=== PATIENT | female | born 1965 | race African-American/Black ===

== ENCOUNTER 2017-01-25 17:07 | Emergency (ER) | payer MEDICAID, OTHER ==
[~2017-01-25] VITALS: Ht 160 cm; Wt 79.0 kg
[~2017-01-25 17:07] MED LIST: ALBU17AE26; BUPR100T13; METF500T; RISP3
[2017-01-25 23:55] VITALS: BP 153/81
[2017-01-26] MEDS ORDERED: TETANUS, DIPHTHERIA, PERTUSSIS VAC/PF 0.5ML (>7YR OLD) IM ONE (01:00)
[2017-01-26] MEDS ORDERED: LIDOCAINE HCL 1% 20ML VIAL (Pyxis) INJ MC ONE (01:00)
[2017-01-26] MEDS ORDERED: BACITRACIN ZINC OINT UDPKT TOP ONE (01:00)
== END 2017-01-26 02:55 | disposition home or self-care (01) ==
LOC: ER 17:07
DX: L03.012 Cellulitis of left finger (principal); I10 Essential (primary) hypertension; J45.909 Unspecified asthma, uncomplicated; F17.210 Nicotine dependence, cigarettes, uncomplicated; Z88.0 Allergy status to penicillin
CPT/HCPCS: 10060; 90471; 90715; 99283; J3490; X7700; Z7610

== ENCOUNTER 2018-04-24 17:25 | Emergency (ER) | payer MEDICAID, OTHER ==
[~2018-04-24] VITALS: Ht 160 cm; Wt 75.0 kg
[2018-04-25 01:21] VITALS: BP 112/66
== END 2018-04-25 01:22 | disposition home or self-care (01) ==
LOC: ER 17:25
DX: J06.9 Acute upper respiratory infection, unspecified (principal); S80.11XA Contusion of right lower leg, initial encounter; W01.0XXA Fall on same level from slipping, tripping and stumbling without subsequent striking against object, initial encounter; Y93.89 Activity, other specified; Y92.89 Other specified places as the place of occurrence of the external cause
CPT/HCPCS: 99283

== ENCOUNTER 2018-07-28 19:33 | Emergency (ER) | payer MEDICAID ==
[~2018-07-28] VITALS: Ht 160 cm; Wt 77.0 kg
[2018-07-29 01:01] LABS: BASOPHILS % 0.1 % (0.0-2.0); EOSINOPHILS % 4.4 % (0.0-5.0); HEMATOCRIT. 38.3 % (36.0-48.0); HEMOGLOBIN. 12.7 g/dL (12.0-16.0); LYMPHOCYTES % 21.9 % (20.0-50.0); MEAN CORPUSCULAR HEMOGLOBIN 29.6 pg (28.0-32.0); MEAN CORPUSCULAR VOLUME 89.3 fL (81.0-99.0); MEAN PLATELET VOLUME 7.5 fl (7.4-10.4); MONOCYTES % 10.3 % (2.0-8.0); NEUTROPHILS % 63.3 % (40.0-76.0); PLATELET 790 x1000/uL (130-400); RED BLOOD CELL COUNT 4.29 mill/uL (4.2-5.4); RED CELL DISTRIBUTION WIDTH 16.3 % (11.6-14.6)
[2018-07-29 01:06] LABS: CHLORIDE 103 mEq/L (98-107)
[2018-07-29 01:08] LABS: PROTHROMBIN TIME 10.5 sec (9.6-11.0)
[2018-07-29 04:29] VITALS: BP 126/79
== END 2018-07-29 04:34 | disposition home or self-care (01) ==
LOC: ER 21:53
DX: S50.11XA Contusion of right forearm, initial encounter (principal); W01.0XXA Fall on same level from slipping, tripping and stumbling without subsequent striking against object, initial encounter; Y93.89 Activity, other specified; Y92.89 Other specified places as the place of occurrence of the external cause; I10 Essential (primary) hypertension; E11.9 Type 2 diabetes mellitus without complications; F17.210 Nicotine dependence, cigarettes, uncomplicated; Z71.6 Tobacco abuse counseling; Z88.0 Allergy status to penicillin
CPT/HCPCS: 36415; 73060; 73090; 80048; 99284; 99406

== ENCOUNTER 2019-05-26 17:29 | Emergency (ER) | payer MEDICAID ==
[~2019-05-26] VITALS: Ht 165.1 cm; Wt 76.0 kg
[2019-05-26] MEDS ORDERED: IBUPROFEN 600MG TABLET PO ONE (20:30)
[2019-05-26 21:44] VITALS: BP 120/81
[2019-05-27] MEDS ORDERED: FENTANYL CITRATE/PF 50MCG/ML 2ML VIAL ONE (07:19)
[2019-05-27] MEDS ORDERED: PROPOFOL 200MG/20ML VIAL IV ONE ×2 (07:20→08:09)
[2019-05-27] MEDS ORDERED: MIDAZOLAM HCL 2 MG/2 ML VIAL ONE (07:20)
[2019-05-27] MEDS ORDERED: EPHEDRINE SULFATE 50MG/ML VIAL ONE (07:29)
[2019-05-27] MEDS ORDERED: ROCURONIUM BROMIDE 10MG/ML VIAL 5ML IV ONE (07:29)
[2019-05-27] MEDS ORDERED: SUCCINYLCHOLINE CHLORIDE 200MG/10ML IV ONE (07:29)
[2019-05-27] MEDS ORDERED: ONDANSETRON HCL 4MG/2ML INJ ONE (08:03)
== END 2019-05-26 21:43 | disposition home or self-care (01) ==
LOC: ER 17:29
DX: S92.351A Displaced fracture of fifth metatarsal bone, right foot, initial encounter for closed fracture (principal); W22.8XXA Striking against or struck by other objects, initial encounter; Y93.89 Activity, other specified; Y92.018 Other place in single-family (private) house as the place of occurrence of the external cause
CPT/HCPCS: 73660; 99283; Z7610

== ENCOUNTER 2019-12-14 12:42 | Emergency (ER) | payer MEDICAID ==
[~2019-12-14] VITALS: Ht 160 cm; Wt 72.0 kg
[~2019-12-14 12:42] MED LIST changes: +INSU100I13 SQ; +INSU100I28 SQ
[2019-12-14 14:32] VITALS: BP 146/83
== END 2019-12-14 14:34 | disposition home or self-care (01) ==
LOC: ER 13:14
DX: S70.11XA Contusion of right thigh, initial encounter (principal); N60.01 Solitary cyst of right breast; J44.9 Chronic obstructive pulmonary disease, unspecified; E11.9 Type 2 diabetes mellitus without complications; I10 Essential (primary) hypertension; Z88.0 Allergy status to penicillin; Z79.4 Long term (current) use of insulin; Z79.899 Other long term (current) drug therapy; Z98.890 Other specified postprocedural states; X58.XXXA Exposure to other specified factors, initial encounter; Y93.89 Activity, other specified; Y92.89 Other specified places as the place of occurrence of the external cause; Y99.8 Other external cause status
CPT/HCPCS: 93005; 99283

== ENCOUNTER 2020-08-15 16:50 | Emergency (ER) | payer MEDICAID ==
[~2020-08-15] VITALS: Ht 167.6 cm; Wt 75.0 kg
[2020-08-15] MEDS ORDERED: LIDOCAINE HCL/EPINEPHRINE 1%-EPI 1:100,000 50 ML VIAL INFIL ONE (18:45)
[2020-08-15] MEDS ORDERED: TETANUS, DIPHTHERIA, PERTUSSIS VAC/PF 0.5ML (>7YR OLD) IM ONE (18:45)
[2020-08-15] MEDS ORDERED: LIDOCAINE HCL/EPINEPHRINE 1%-EPI 1:100,000 20 ML VIAL INFIL NR (19:24)
[2020-08-15] MEDS ORDERED: ACETAMINOPHEN 325MG TABLET PO ONE (22:30)
[2020-08-15 22:50] VITALS: BP 146/80
== END 2020-08-15 23:07 | disposition home or self-care (01) ==
LOC: ER 16:50
DX: R55 Syncope and collapse (principal); J45.909 Unspecified asthma, uncomplicated; E11.9 Type 2 diabetes mellitus without complications; Z98.890 Other specified postprocedural states; Z88.0 Allergy status to penicillin; Z79.899 Other long term (current) drug therapy
CPT/HCPCS: 12013; 99283; J3490

== ENCOUNTER 2020-08-21 19:28 | Emergency (ER) | payer MEDICAID ==
[~2020-08-21] VITALS: Ht 160 cm; Wt 64.0 kg
[2020-08-21 19:40] VITALS: BP 131/77
== END 2020-08-21 23:00 | disposition home or self-care (01) ==
LOC: ER 19:28
DX: S02.40CA Maxillary fracture, right side, initial encounter for closed fracture (principal); S00.03XA Contusion of scalp, initial encounter; Y08.89XA Assault by other specified means, initial encounter; Y93.89 Activity, other specified; Z71.89 Other specified counseling; Y92.89 Other specified places as the place of occurrence of the external cause; I10 Essential (primary) hypertension; E11.9 Type 2 diabetes mellitus without complications; J44.9 Chronic obstructive pulmonary disease, unspecified; Z79.899 Other long term (current) drug therapy
CPT/HCPCS: 99284

== ENCOUNTER 2020-12-07 16:22 | Emergency (ER) | payer OTHER, MEDICAID ==
[~2020-12-07] VITALS: Ht 160 cm; Wt 59.0 kg
[~2020-12-07 16:22] MED LIST changes: +IBUP-2029 MT
[2020-12-07] MEDS ORDERED: ASPIRIN 81MG TABLET PO ONE (17:30)
[2020-12-07] MEDS ORDERED: NITROGLYCERIN 0.4MG TABLET SL SL PRN (17:30)
[2020-12-07 17:36] LABS: BASOPHILS % 1.3 % (0.0-2.0); CHLORIDE 97 mEq/L (98-107); EOSINOPHILS % 5.3 % (0.0-5.0); HEMATOCRIT. 49.7 % (36.0-48.0); HEMOGLOBIN. 16.6 g/dL (12.0-16.0); LYMPHOCYTES % 22.2 % (20.0-50.0); MEAN CORPUSCULAR HEMOGLOBIN 28.1 pg (28.0-32.0); MEAN CORPUSCULAR VOLUME 83.9 fL (81.0-99.0); MONOCYTES % 8.7 % (2.0-8.0); NEUTROPHILS % 62.5 % (40.0-76.0); PLATELET 770 x1000/uL (130-400); RED BLOOD CELL COUNT 5.92 mill/uL (4.2-5.4); RED CELL DISTRIBUTION WIDTH 16.7 % (11.6-14.6)
[2020-12-07 18:38] LABS: CHLORIDE 100 mEq/L (98-107)
[2020-12-07 18:45] LABS: D-DIMER 0.33 mg/L FEU (<0.50); PARTIAL THROMBOPLASTIN TIME 28.6 sec (23.4-31.0)
[2020-12-07 21:38] VITALS: BP 128/72
== END 2020-12-08 | disposition short-term general hospital (02) ==
LOC: ER 16:41
DX: R06.02 Shortness of breath (principal); I48.92 Unspecified atrial flutter; R00.2 Palpitations; E11.9 Type 2 diabetes mellitus without complications; I10 Essential (primary) hypertension; Z88.0 Allergy status to penicillin; Z79.4 Long term (current) use of insulin; Z79.899 Other long term (current) drug therapy
CPT/HCPCS: 36415; 71045; 80048; 80053; 83880; 84484; 85025; 85379; 85610; 85730; 93005; 99285; Z7610

== ENCOUNTER 2022-08-21 18:40 | Emergency (ER) | payer MEDICAID, OTHER ==
[~2022-08-21] VITALS: Ht 162.6 cm; Wt 50.6 kg
[2022-08-21 20:50] LABS: HEMATOCRIT. 52.7 % (36.0-48.0); HEMOGLOBIN. 17.1 g/dL (12.0-16.0); MEAN CORPUSCULAR HEMOGLOBIN 30.2 pg (28.0-32.0); MEAN CORPUSCULAR VOLUME 93.2 fL (81.0-99.0); MEAN PLATELET VOLUME 8.4 fl (7.4-10.4); PLATELET 909 x1000/uL (130-400); RED BLOOD CELL COUNT 5.65 mill/uL (4.2-5.4); RED CELL DISTRIBUTION WIDTH 16.4 % (11.6-14.6)
[2022-08-21 20:57] LABS: CHLORIDE 98 mEq/L (98-107)
[2022-08-21 21:17] LABS: PLATELET ESTIMATE MARKEDLY INCREASED
[2022-08-22 00:30] VITALS: BP 150/83
[2022-08-22] MEDS ORDERED: KETOROLAC 30MG/ML VIAL IM ONE (00:30)
[2022-08-22] MEDS ORDERED: IBUP-2028 MT (02:31)
[2022-08-22] MEDS ORDERED: KETOROLAC 30MG/ML VIAL IM NR (03:00)
== END 2022-08-22 02:52 | disposition home or self-care (01) ==
LOC: ER 18:40
DX: E11.65 Type 2 diabetes mellitus with hyperglycemia (principal); I10 Essential (primary) hypertension; F12.10 Cannabis abuse, uncomplicated; Z98.890 Other specified postprocedural states
CPT/HCPCS: 36415; 73100; 73502; 73551; 80053; 85025; 96372; 99284; J1885

== ENCOUNTER 2024-10-20 20:25 | Inpatient (IN) | payer MEDICAID, OTHER ==
[~2024-10-20] VITALS: Ht 160 cm; Wt 64.9 kg
[~2024-10-20 20:25] MED LIST changes: +FURO40TA5 PO; +HYDR500C23 PO; +IBUP-2028 MT; -IBUP-2029 MT; +INSLIS SUBCUT; +LANTUSUD SUBCUT; +METO-539 PO; +P20 PO; +RIVA20TA MT
[2024-10-20 20:27] VITALS: O2SAT 99
[2024-10-20] MEDS: SODIUM CHLORIDE 0.9% 1,000 ML IV ONE ×2 (20:45→23:39)
[2024-10-20 21:44] LABS: HEMATOCRIT. 52.3 % (36.0-48.0); HEMOGLOBIN. 16.9 g/dL (12.0-16.0); MEAN PLATELET VOLUME 8.1 fl (7.4-10.4); PLATELET 952 x1000/uL (130-400); RED BLOOD CELL COUNT 5.16 mill/uL (4.2-5.4); RED CELL DISTRIBUTION WIDTH 16.9 % (11.6-14.6)
[2024-10-20 22:12] LABS: CREATININE 1.5 mg/dL (0.6-1.0); TROPONIN I HIGH SENSITIVITY 20 ng/L (3.0-34); UREA NITROGEN BLOOD 38 mg/dL (9-23)
[2024-10-20 22:13] LABS: ETHANOL BLOOD < 10 mg/dL (<10)
[2024-10-20 22:14] LABS: ASPARTATE AMINOTRANSFERASE 39 IU/L (<34); BILIRUBIN DIRECT 0.3 mg/dL (<=3.0); BILIRUBIN TOTAL 0.7 mg/dL (0.1-1.0); PROTEIN TOTAL 7.3 g/dL (6.0-8.3)
[2024-10-20 22:31] LABS: INR 1.1; LYMPHOCYTES % MANUAL 7.0 % (20.0-60.0); MONOCYTES % MANUAL 11.0 % (2.0-8.0); NEUTROPHILS % MANUAL 82.0 % (45.0-75.0); PLATELET ESTIMATE MARKEDLY INCREASED
[2024-10-20] MEDS ORDERED: VANCOMYCIN 1G PREMIX 200 ML IV ONE (23:00)
[2024-10-20] MEDS ORDERED: CEFEPIME 2GM IN DEXT 5% 100ML IV ONE (23:00)
[2024-10-20] MEDS: CEFEPIME 2GM/100ML 100 ML IV NR (23:39)
[2024-10-21] MEDS ORDERED: LORAZEPAM 2MG/ML UD SYRINGE IV PRN
[2024-10-21] MEDS ORDERED: ONDANSETRON HCL 4MG/2ML INJ IV PRN
[2024-10-21] MEDS ORDERED: IPRATROPIUM/ALBUTEROL 0.5-3(2.5)MG/3ML NEB HHN PRN
[2024-10-21] MEDS ORDERED: ACETAMINOPHEN 325MG TABLET PO PRN ×2
[2024-10-21] MEDS ORDERED: CHLORDIAZEPOXIDE 25MG CAPSULE PO PRN
[2024-10-21] MEDS ORDERED: DEXTROSE 50% WATER 50ML SYRINGE IV PRN
[2024-10-21] MEDS ORDERED: METRONIDAZOLE 500 MG PREMIX 100 ML IV SCH (01:00)
[2024-10-21] MEDS: VANCOMYCIN 1.5GM/250ML 250 ML IV NR (01:21)
[2024-10-21] MEDS: FOLIC ACID 1 MG, THIAMINE HCL 100 MG, MVI, ADULT NO.1 10 ML in DEXTROSE 5% WATER 1,000 ML IV SCH (01:21)
[2024-10-21 03:53] VITALS: BP 133/81; PULSE 91; RESP 16; TEMP 36.2512
[2024-10-21] MEDS: SODIUM CHLORIDE 0.45% 1,000 ML IV SCH (04:56)
[2024-10-21] MEDS ORDERED: PIPERACILLIN/TAZO 3.375G/50ML 50 ML IV SCH (06:00)
[2024-10-21] MEDS: METRONIDAZOLE 500 MG PREMIX 100 ML IV SCH (06:28)
[2024-10-21] MEDS: BLOOD SUGAR DIAGNOSTIC STRIP TEST SCH (07:06)
[2024-10-21 07:25] LABS: TROPONIN I HIGH SENSITIVITY 18 ng/L (3.0-34)
[2024-10-21 07:28] LABS: T4 FREE 1.03 ng/dL (0.89-1.76)
[2024-10-21 07:46] LABS: CREATININE 1.2 mg/dL (0.6-1.0)
[2024-10-21 07:47] LABS: LDL CHOLESTEROL 88 mg/dL (5-100); TRIGLYCERIDE 159 mg/dL (0-150); UREA NITROGEN BLOOD 27 mg/dL (9-23)
[2024-10-21 07:48] LABS: ASPARTATE AMINOTRANSFERASE 32 IU/L (<34)
[2024-10-21 07:49] LABS: BILIRUBIN DIRECT 0.2 mg/dL (<=3.0); BILIRUBIN TOTAL 0.6 mg/dL (0.1-1.0); PROTEIN TOTAL 6.6 g/dL (6.0-8.3)
[2024-10-21 08:00] VITALS: BP 146/88; PULSE 83; RESP 17; TEMP 36; O2SAT 98
[2024-10-21 08:01] LABS: FOLIC ACID (FOLATE) SERUM 15.97 ng/mL (>5.38); VITAMIN B12 SERUM 1448 pg/mL (211-911)
[2024-10-21 08:09] LABS: BASOPHILS % 0.6 % (0.0-2.0); EOSINOPHILS % 3.6 % (0.0-5.0); HEMATOCRIT. 47.8 % (36.0-48.0); HEMOGLOBIN. 15.9 g/dL (12.0-16.0); LYMPHOCYTES % 8.1 % (20.0-50.0); MEAN PLATELET VOLUME 8.1 fl (7.4-10.4); MONOCYTES % 9.8 % (2.0-8.0); NEUTROPHILS % 77.9 % (40.0-76.0); PLATELET 838 x1000/uL (130-400); RED BLOOD CELL COUNT 4.79 mill/uL (4.2-5.4); RED CELL DISTRIBUTION WIDTH 16.2 % (11.6-14.6)
[2024-10-21] MEDS ORDERED: ENOXAPARIN 40MG/0.4ML SYR SUBCUT SCH (09:00)
[2024-10-21] MEDS: PANTOPRAZOLE SODIUM 40 MG/VIAL IV SCH (09:00)
[2024-10-21] MEDS: CEFEPIME 2GM/100ML 100 ML IV SCH ×2 (09:00→21:13)
[2024-10-21] MEDS: INSULIN LISPRO 100 UNITS/ML SUBCUT SCH (09:48)
[2024-10-21] MEDS: MULTIVITAMINS,THER W-MINERALS TABLET PO SCH (09:51)
[2024-10-21] MEDS: FOLIC ACID 1MG TABLET PO SCH (09:51)
[2024-10-21] MEDS: ENOXAPARIN 30MG/0.3ML SYR SUBCUT SCH (09:52)
[2024-10-21 11:55] LABS: HEPATITIS C AB NON REACTIVE (Neg) (Negative)
[2024-10-21 12:00] VITALS: BP 161/95; PULSE 79; RESP 19; TEMP 36.1; O2SAT 97
[2024-10-21 16:00] VITALS: BP 143/91; PULSE 17; RESP 17; TEMP 36; O2SAT 83
[2024-10-21] MEDS: CLONIDINE 0.1MG TABLET PO PRN (17:45)
[2024-10-22] VITALS: BP 121/86; PULSE 75; RESP 18; TEMP 36.5; O2SAT 100
[2024-10-22 04:00] VITALS: BP 142/90; PULSE 79; RESP 16; TEMP 36.6; O2SAT 91
[2024-10-22 06:58] LABS: BASOPHILS % 0.7 % (0.0-2.0); EOSINOPHILS % 4.1 % (0.0-5.0); HEMATOCRIT. 45.9 % (36.0-48.0); HEMOGLOBIN. 15.3 g/dL (12.0-16.0); LYMPHOCYTES % 11.7 % (20.0-50.0); MEAN PLATELET VOLUME 8.1 fl (7.4-10.4); MONOCYTES % 13.3 % (2.0-8.0); NEUTROPHILS % 70.2 % (40.0-76.0); PLATELET 796 x1000/uL (130-400); RED BLOOD CELL COUNT 4.65 mill/uL (4.2-5.4); RED CELL DISTRIBUTION WIDTH 16.1 % (11.6-14.6)
[2024-10-22 07:21] LABS: CREATININE 0.9 mg/dL (0.6-1.0)
[2024-10-22 07:22] LABS: UREA NITROGEN BLOOD 17 mg/dL (9-23)
[2024-10-22 08:00] VITALS: BP 135/95; PULSE 80; RESP 19; TEMP 36.2; O2SAT 97
[2024-10-22] MEDS: VANCOMYCIN 750MG PREMIX 150 ML IV SCH (10:31)
[2024-10-22 12:00] VITALS: BP 123/88; PULSE 76; RESP 19; TEMP 36.3; O2SAT 97
[2024-10-22 16:00] VITALS: BP 135/88; PULSE 88; RESP 19; TEMP 36.3; O2SAT 100
[2024-10-22] MEDS: VANCOMYCIN 500MG PREMIX 100 ML IV SCH (18:11)
[2024-10-22 20:00] VITALS: BP 139/86; PULSE 93; RESP 17; TEMP 36.1; O2SAT 99
[2024-10-23] VITALS: BP 136/78; PULSE 74; RESP 17; TEMP 35.9; O2SAT 98
[2024-10-23 04:00] VITALS: BP 152/88; PULSE 64; RESP 16; TEMP 36.3; O2SAT 95
[2024-10-23 07:06] LABS: CREATININE 0.9 mg/dL (0.6-1.0); UREA NITROGEN BLOOD 16 mg/dL (9-23)
[2024-10-23 07:08] LABS: HEMATOCRIT. 47.3 % (36.0-48.0); HEMOGLOBIN. 15.0 g/dL (12.0-16.0); MEAN PLATELET VOLUME 8.1 fl (7.4-10.4); PLATELET 789 x1000/uL (130-400); RED BLOOD CELL COUNT 4.71 mill/uL (4.2-5.4); RED CELL DISTRIBUTION WIDTH 16.7 % (11.6-14.6)
[2024-10-23 08:00] VITALS: BP 102/78; PULSE 79; RESP 18; TEMP 36.4; O2SAT 99
[2024-10-23] MEDS: THIAMINE HCL 100MG TABLET PO SCH (08:19)
[2024-10-23 12:00] VITALS: BP 136/79; PULSE 83; RESP 18; TEMP 36.6; O2SAT 96
[2024-10-23 16:00] VITALS: BP 123/78; PULSE 87; RESP 18; TEMP 36.7; O2SAT 98
[2024-10-23 16:38] LABS: BAND% 6.0 % (1.0-6.0); EOSINOPHILS % MANUAL 3.0 % (0.0-5.0); LYMPHOCYTES % MANUAL 17.0 % (20.0-60.0); MONOCYTES % MANUAL 7.0 % (2.0-8.0); NEUTROPHILS % MANUAL 67.0 % (45.0-75.0); PLATELET ESTIMATE MARKEDLY INCREASED
[2024-10-23 20:00] VITALS: BP 121/71; PULSE 84; RESP 16; TEMP 36.2; O2SAT 96
[2024-10-24] VITALS: BP 140/82; PULSE 72; RESP 16; TEMP 36.2; O2SAT 97
[2024-10-24 04:00] VITALS: BP 135/109; PULSE 101; RESP 16; TEMP 36.2; O2SAT 97
[2024-10-24 08:00] VITALS: BP 135/86; PULSE 80; RESP 18; TEMP 36.1; O2SAT 96
[2024-10-24] MEDS: INSULIN LISPRO 100 UNITS/ML SUBCUT SCH (08:05)
[2024-10-24] MEDS: ENOXAPARIN 30MG/0.3ML SYR SUBCUT SCH (10:00)
[2024-10-24 12:00] VITALS: BP 125/86; PULSE 90; RESP 18; TEMP 36.6; O2SAT 99
[2024-10-24 16:00] VITALS: BP 139/86; PULSE 67; RESP 18; TEMP 36.4; O2SAT 93
[2024-10-24 20:00] VITALS: BP 138/93; PULSE 87; RESP 17; TEMP 36.7; O2SAT 95
[2024-10-24] MEDS: ENOXAPARIN 60MG/0.6ML SYR SUBCUT SCH (20:36)
[2024-10-25] VITALS: BP 144/93; PULSE 85; RESP 17; TEMP 36.6; O2SAT 96
[2024-10-25 08:00] VITALS: BP 146/83; PULSE 79; RESP 20; TEMP 36.3; O2SAT 98
[2024-10-25 12:00] VITALS: BP 144/79; PULSE 82; RESP 20; TEMP 36.2; O2SAT 98
[2024-10-25] MEDS: CEFEPIME 2GM/100ML 100 ML IV SCH (15:01)
[2024-10-25 16:00] VITALS: BP 145/89; PULSE 82; RESP 18; TEMP 36.4; O2SAT 98
[2024-10-25 20:00] VITALS: BP 147/85; PULSE 79; RESP 19; TEMP 36.6; O2SAT 97
[2024-10-25] MEDS: LORAZEPAM 1MG TABLET PO PRN (21:50)
[2024-10-26] VITALS (7 sets, daily range): BP systolic 137–170; BP diastolic 89–105; PULSE 63–96; RESP 17–18; TEMP 36.1–36.4; O2SAT 98–99
[2024-10-26] MEDS: FAMOTIDINE 20MG/2ML VIAL IV SCH (09:01)
[2024-10-26 23:36] LABS: CLARITY URINE CLEAR (CLEAR); COLOR URINE YELLOW (YELLOW); GLUCOSE URINE NEGATIVE (NEGATIVE); KETONES URINE NEGATIVE (NEGATIVE); LEUKOCYTE ESTERASE URINE NEGATIVE (NEGATIVE); NITRITE URINE NEGATIVE (NEGATIVE); OCCULT BLOOD URINE NEGATIVE (NEGATIVE); PH URINE 6.5 (4.5-8.0); PROTEIN URINE 1+ (NEGATIVE); SPECIFIC GRAVITY URINE 1.009 (1.005-1.030); UROBILINOGEN URINE 0.2 E.U./dL (0.2-1.0)
[2024-10-26 23:52] LABS: *AMPHETAMINES SCREEN URINE NEGATIVE (NEGATIVE); *BARBITURATES SCREEN URINE NEGATIVE (NEGATIVE); *BENZODIAZEPINES SCREEN URINE NEGATIVE (NEGATIVE); *COCAINE SCREEN URINE NEGATIVE (NEGATIVE); CANNABINOID URINE SCREEN NEGATIVE (NEGATIVE); ECSTASY MDMA SCREEN URINE NEGATIVE (NEGATIVE); METHADONE URINE SCREEN NEGATIVE (NEGATIVE); OPIATES URINE SCREEN NEGATIVE (NEGATIVE); PHENCYCLIDINE URINE SCREEN NEGATIVE (NEGATIVE)
[2024-10-27] VITALS: BP 166/111; PULSE 88; RESP 18; TEMP 36.3; O2SAT 96
[2024-10-27 00:03] LABS: BACTERIA URINE NONE SEEN; RBC URINE 0-2 /hpf (0-2); SQUAMOUS EPITHELIAL CELL URINE FEW /lpf (RARE/1+); WBC URINE 0-2 /hpf (0-2)
[2024-10-27 04:00] VITALS: BP 104/66; PULSE 99; RESP 18; TEMP 36.4; O2SAT 99
[2024-10-27 08:00] VITALS: BP 123/71; PULSE 83; RESP 18; TEMP 36.6; O2SAT 98
[2024-10-27] MEDS ORDERED: DIPHENHYDRAMINE 50MG/ML VIAL IV PRN (11:45)
[2024-10-27 12:00] VITALS: BP 130/70; PULSE 74; RESP 18; TEMP 35.6; O2SAT 99
[2024-10-27] MEDS: HALOPERIDOL LACTATE 5MG/ML VIAL IM SCH (13:21)
[2024-10-27 16:00] VITALS: BP 104/61; PULSE 78; RESP 19; TEMP 36.3; O2SAT 97
[2024-10-27 17:23] LABS: HEMATOCRIT. 40.0 % (36.0-48.0); HEMOGLOBIN. 13.2 g/dL (12.0-16.0); MEAN PLATELET VOLUME 8.8 fl (7.4-10.4); PLATELET 877 x1000/uL (130-400); RED BLOOD CELL COUNT 4.09 mill/uL (4.2-5.4); RED CELL DISTRIBUTION WIDTH 16.0 % (11.6-14.6)
[2024-10-27 17:40] LABS: BAND% 1.0 % (1.0-6.0); EOSINOPHILS % MANUAL 1.0 % (0.0-5.0); LYMPHOCYTES % MANUAL 12.0 % (20.0-60.0); MONOCYTES % MANUAL 22.0 % (2.0-8.0); NEUTROPHILS % MANUAL 64.0 % (45.0-75.0); PLATELET ESTIMATE INCREASED
[2024-10-27 18:09] LABS: CREATININE 0.8 mg/dL (0.6-1.0)
[2024-10-27 18:11] LABS: UREA NITROGEN BLOOD 16 mg/dL (9-23)
[2024-10-27 18:13] LABS: PHOSPHORUS 2.8 mg/dL (2.5-4.9)
[2024-10-27 20:00] VITALS: BP 98/65; PULSE 73; RESP 16; TEMP 36.7; O2SAT 99
[2024-10-28 04:00] VITALS: BP 111/72; PULSE 80; RESP 16; TEMP 37; O2SAT 98
[2024-10-28 08:00] VITALS: BP 113/74; PULSE 18; RESP 18; TEMP 35.8; O2SAT 100
[2024-10-28 09:20] LABS: BASOPHILS % 1.3 % (0.0-2.0); EOSINOPHILS % 2.8 % (0.0-5.0); HEMATOCRIT. 44.9 % (36.0-48.0); HEMOGLOBIN. 14.3 g/dL (12.0-16.0); LYMPHOCYTES % 10.7 % (20.0-50.0); MEAN PLATELET VOLUME 9.0 fl (7.4-10.4); MONOCYTES % 13.0 % (2.0-8.0); NEUTROPHILS % 72.2 % (40.0-76.0); PLATELET 848 x1000/uL (130-400); RED BLOOD CELL COUNT 4.42 mill/uL (4.2-5.4); RED CELL DISTRIBUTION WIDTH 17.0 % (11.6-14.6)
[2024-10-28 09:35] LABS: CREATININE 0.9 mg/dL (0.6-1.0)
[2024-10-28 09:36] LABS: UREA NITROGEN BLOOD 18 mg/dL (9-23)
[2024-10-28 09:38] LABS: PHOSPHORUS 3.6 mg/dL (2.5-4.9)
[2024-10-28 12:00] VITALS: BP 121/79; PULSE 92; RESP 18; TEMP 36.6; O2SAT 100
[2024-10-28 16:00] VITALS: BP 126/79; PULSE 85; RESP 18; TEMP 36.6; O2SAT 100
[2024-10-28 20:00] VITALS: BP 147/83; PULSE 81; RESP 18; TEMP 36.9; O2SAT 96
[2024-10-29] VITALS: BP 130/80; PULSE 80; RESP 20; TEMP 36.7; O2SAT 96
[2024-10-29 04:00] VITALS: BP 144/77; PULSE 82; RESP 20; TEMP 37; O2SAT 98
[2024-10-29] MEDS: HALOPERIDOL 5MG TABLET PO NR (07:31)
[2024-10-29 08:00] VITALS: BP 128/89; PULSE 98; RESP 20; TEMP 36.7; O2SAT 95
[2024-10-29 12:00] VITALS: BP 155/92; PULSE 78; RESP 18; TEMP 36.6; O2SAT 96
[2024-10-29 16:00] VITALS: BP 145/82; PULSE 70; RESP 17; TEMP 36.4; O2SAT 97
[2024-10-29 20:00] VITALS: BP 152/82; PULSE 75; RESP 18; TEMP 36.4; O2SAT 98
[2024-10-30] VITALS: BP 140/56; PULSE 76; RESP 18; TEMP 36.2; O2SAT 98
[2024-10-30 04:00] VITALS: BP 151/80; PULSE 75; RESP 18; TEMP 36.5; O2SAT 100
[2024-10-30 08:00] VITALS: BP 144/92; PULSE 77; RESP 20; TEMP 36.7; O2SAT 100
[2024-10-30 12:00] VITALS: BP 140/81; PULSE 61; RESP 20; TEMP 37.1; O2SAT 100
[2024-10-30 16:00] VITALS: BP 134/66; PULSE 77; RESP 20; TEMP 36.8; O2SAT 100
[2024-10-30 20:00] VITALS: BP 140/76; PULSE 125; RESP 18; TEMP 36.4; O2SAT 95
[2024-10-30] MEDS: RISPERIDONE 0.5MG TABLET PO SCH (20:54)
[2024-10-31] VITALS: BP 138/77; PULSE 95; RESP 16; TEMP 36.8; O2SAT 96
[2024-10-31 04:00] VITALS: BP 141/84; PULSE 92; RESP 18; TEMP 36.8; O2SAT 96
[2024-10-31 07:50] LABS: HEMATOCRIT. 43.4 % (36.0-48.0); HEMOGLOBIN. 13.2 g/dL (12.0-16.0); MEAN PLATELET VOLUME 8.4 fl (7.4-10.4); PLATELET 741 x1000/uL (130-400); RED BLOOD CELL COUNT 4.23 mill/uL (4.2-5.4); RED CELL DISTRIBUTION WIDTH 16.8 % (11.6-14.6)
[2024-10-31 08:00] VITALS: BP_SYST 140; BP_DIAS 84; BP_DIAS 99; PULSE 67; PULSE 89; RESP 18; TEMP 36.4; O2SAT 95; O2SAT 96
[2024-10-31 08:08] LABS: CREATININE 0.8 mg/dL (0.6-1.0)
[2024-10-31 08:09] LABS: UREA NITROGEN BLOOD 17 mg/dL (9-23)
[2024-10-31 08:11] LABS: PHOSPHORUS 4.4 mg/dL (2.5-4.9)
[2024-10-31] MEDS: INSULIN GLARGINE 100 UNITS/ML SUBCUT SCH (10:18)
[2024-10-31 10:19] LABS: BAND% 4.0 % (1.0-6.0); LYMPHOCYTES % MANUAL 9.0 % (20.0-60.0); MONOCYTES % MANUAL 16.0 % (2.0-8.0); NEUTROPHILS % MANUAL 71.0 % (45.0-75.0); PLATELET ESTIMATE INCREASED
[2024-10-31 12:00] VITALS: BP 126/81; PULSE 75; RESP 18; TEMP 36.4; O2SAT 96
[2024-10-31 16:00] VITALS: BP 136/79; PULSE 82; RESP 18; TEMP 36.5; O2SAT 99
[2024-10-31 20:00] VITALS: BP 123/79; PULSE 83; RESP 18; TEMP 36.2; O2SAT 95
[2024-11-01] VITALS: BP 126/78; PULSE 86; RESP 18; TEMP 36.4; O2SAT 96
[2024-11-01 04:00] VITALS: BP 128/74; PULSE 84; RESP 17; TEMP 36.5; O2SAT 97
[2024-11-01 08:00] VITALS: BP 117/80; PULSE 69; RESP 16; TEMP 36.4; O2SAT 100
== END 2024-11-01 09:59 | disposition left against medical advice (07) | DRG 812 ==
LOC: ER 20:25 → 5WST 23:15 → EDBEDREQTM 23:23 → EDBEDREQ 23:23 → ENRESERV 23:34 → 7EST 10-25 05:30
PROVIDERS: ADMIT Internal Medicine; ATTEND Internal Medicine
DX: T43.651A Poisoning by methamphetamines accidental (unintentional), initial encounter (principal); A41.9 Sepsis, unspecified organism; G92.8 Other toxic encephalopathy; L89.323 Pressure ulcer of left buttock, stage 3; L89.313 Pressure ulcer of right buttock, stage 3; N17.9 Acute kidney failure, unspecified; E87.0 Hyperosmolality and hypernatremia; E11.65 Type 2 diabetes mellitus with hyperglycemia; D53.9 Nutritional anemia, unspecified; E11.9 Type 2 diabetes mellitus without complications; E78.5 Hyperlipidemia, unspecified; F10.20 Alcohol dependence, uncomplicated; F20.9 Schizophrenia, unspecified; F39 Unspecified mood [affective] disorder; I11.0 Hypertensive heart disease with heart failure; I48.0 Paroxysmal atrial fibrillation; Z96.641 Presence of right artificial hip joint; F15.10 Other stimulant abuse, uncomplicated; I50.32 Chronic diastolic (congestive) heart failure; Z53.29 Procedure and treatment not carried out because of patient's decision for other reasons; Z79.4 Long term (current) use of insulin; Z88.0 Allergy status to penicillin; Z91.148 Patient's other noncompliance with medication regimen for other reason; Y92.89 Other specified places as the place of occurrence of the external cause
CPT/HCPCS: 36415; 71045; 72170; 80048; 80061; 80076; 80202; 80305; 80307; 80320; 80329; 81003; 82140; 82550; 82607; 82746; 82962; 83036; 83605; 83735; 83880; 84100; 84145; 84439; 84443; 84484; 85025; 86705; 86850; 86900; 87340; 93005; 93306; 97116; 97162; 97164; 97166; 97530; 97535; 99291; A4606; J0692; J1308; J1630; J1650; J1815; J2470; J3373; J3411; J3490; J7030; J7070; G0480

== ENCOUNTER 2024-11-06 15:18 | Emergency (ER) | payer MEDICAID ==
[~2024-11-06] VITALS: Ht 160 cm; Wt 58.0 kg
[~2024-11-06 15:18] MED LIST changes: -ALBU17AE26; -BUPR100T13
[2024-11-06 15:50] VITALS: O2SAT 97
[2024-11-06] MEDS ORDERED: FUROSEMIDE 40MG TABLET PO SCH (18:00)
[2024-11-06] MEDS ORDERED: FURO40TA5 PO (18:03)
[2024-11-06] MEDS ORDERED: METO-539 PO (18:03)
[2024-11-06] MEDS ORDERED: RIVA20TA MT (18:03)
[2024-11-06 18:19] VITALS: BP 132/72; PULSE 89; RESP 16; TEMP 36.8; O2SAT 98
== END 2024-11-06 18:20 | disposition home or self-care (01) ==
LOC: ER 15:18
DX: I50.9 Heart failure, unspecified (principal); I11.0 Hypertensive heart disease with heart failure; E11.9 Type 2 diabetes mellitus without complications; F15.10 Other stimulant abuse, uncomplicated; Z98.890 Other specified postprocedural states; Z53.29 Procedure and treatment not carried out because of patient's decision for other reasons; Z88.0 Allergy status to penicillin; Z79.4 Long term (current) use of insulin; Z79.899 Other long term (current) drug therapy
CPT/HCPCS: 99283

== ENCOUNTER 2025-01-10 03:15 | Emergency (ER) | payer MEDICAID ==
[~2025-01-10] VITALS: Ht 162.6 cm; Wt 58.0 kg
[~2025-01-10 03:15] MED LIST changes: -HYDR500C23 PO; +[UNRECOGNIZED DRUG - CODE] PO
[2025-01-10 03:19] VITALS: O2SAT 98
[2025-01-10 03:53] VITALS: BP 148/80; PULSE 79; RESP 18; TEMP 36.8; O2SAT 99
[2025-01-10] MEDS: ACETAMINOPHEN 500MG TABLET PO ONE (04:30)
[2025-01-10] MEDS ORDERED: TOPUD MT (05:38)
[2025-01-10] MEDS ORDERED: OCUFLX RIGHTEYE (05:38)
== END 2025-01-10 05:58 | disposition home or self-care (01) ==
LOC: ER 03:15
DX: S05.11XA Contusion of eyeball and orbital tissues, right eye, initial encounter (principal); I10 Essential (primary) hypertension; E11.9 Type 2 diabetes mellitus without complications; Z79.01 Long term (current) use of anticoagulants; Z79.4 Long term (current) use of insulin; Z79.52 Long term (current) use of systemic steroids; Z88.0 Allergy status to penicillin; Z79.84 Long term (current) use of oral hypoglycemic drugs; Z79.899 Other long term (current) drug therapy; W01.198A Fall on same level from slipping, tripping and stumbling with subsequent striking against other object, initial encounter; Y93.89 Activity, other specified; Y92.89 Other specified places as the place of occurrence of the external cause; Y99.8 Other external cause status
CPT/HCPCS: 70486; 99284